=== PATIENT | female | born 1965 | race Caucasian/White ===

== ENCOUNTER 2017-10-28 10:34 | Inpatient (IN) | payer SELFPAY ==
[~2017-10-28] VITALS: Ht 170.2 cm; Wt 45.0 kg
[2017-10-28 11:13] LABS: HEMATOCRIT 43.1 % (36.0-46.0); HEMOGLOBIN 14.9 G/DL (11.9-15.5); MCH 29.8 PG (29.0-34.0); MCHC 34.6 G/DL (30.0-36.0); MCV 86.2 FL (83-99); RBC DIS.WIDTH-CV 11.9 % (11.8-14.6); WHITE BLOOD COUNT 7.6 K/uL (4.1-10.2)
[2017-10-28 11:17] LABS: ALBUMIN 4.8 g/dL (3.2-4.8); CHLORIDE 82 mEq/L (99-109); POTASSIUM 2.9 mEq/L (3.7-5.4); SODIUM 138 mEq/L (136-147)
[2017-10-28 11:19] LABS: GLUCOSE 103 mg/dL (70-99)
[2017-10-28 11:20] LABS: TOTAL PROTEIN 9.2 g/dL (6.4-8.3)
[2017-10-28 11:23] LABS: ALKALINE PHOSPHATASE 84 IU/L (3-129); CREATININE 1.2 mg/dL (0.6-1.3); GFR ESTIMATE (CALCULATED) 50 mL/min/
[2017-10-28 11:24] LABS: UREA NITROGEN (BUN) 40 mg/dL (9-23)
[2017-10-28 11:25] LABS: AST (GOT) 23 IU/L (2-34)
[2017-10-28 11:26] LABS: ALT (GPT) 11 IU/L (3-49)
[2017-10-28 11:53] LABS: PLAT.SUFFICIENCY ADEQUATE; PLATELET COUNT 390 K/uL (156-360)
[2017-10-28 15:59] LABS: CHLORIDE 86 mEq/L (99-109); POTASSIUM 2.9 mEq/L (3.7-5.4); SODIUM 137 mEq/L (136-147)
[2017-10-28 16:01] LABS: GLUCOSE 137 mg/dL (70-99)
[2017-10-28 16:05] LABS: CREATININE 0.8 mg/dL (0.6-1.3); GFR ESTIMATE (CALCULATED) > 59 mL/min/
[2017-10-28 16:06] LABS: UREA NITROGEN (BUN) 32 mg/dL (9-23)
[2017-10-28 18:48] VITALS: BP 123/76
[2017-10-28 22:39] LABS: CHLORIDE 88 mEq/L (99-109); MAGNESIUM 1.9 mg/dL (1.3-2.7); POTASSIUM 2.7 mEq/L (3.7-5.4); SODIUM 138 mEq/L (136-147)
[2017-10-28 22:44] LABS: CREATININE 0.8 mg/dL (0.6-1.3); GFR ESTIMATE (CALCULATED) > 59 mL/min/
[2017-10-28 22:45] LABS: UREA NITROGEN (BUN) 26 mg/dL (9-23)
[2017-10-28 22:50] LABS: GLUCOSE 91 mg/dL (70-99)
[2017-10-28 23:23] VITALS: BP 112/63
[2017-10-29] VITALS (7 sets, daily range): BP systolic 96–155; BP diastolic 51–68
[2017-10-29 05:51] LABS: BASOPHIL (%) 0.7 % (0-1); EOSINOPHIL (%) 2.5 % (0-5); EOSINOPHIL COUNT 0.1 K/uL (0-0.3); HEMATOCRIT 32.5 % (36.0-46.0); IMMATURE GRANULOCYTE (%) 0.2 % (0.0-0.7); LYMPHOCYTE (%) 22.2 % (15-42); LYMPHOCYTE COUNT 1.3 K/uL (1.0-2.8); MCH 29.1 PG (29.0-34.0); MCHC 33.5 G/DL (30.0-36.0); MCV 86.9 FL (83-99); MONOCYTE (%) 8.3 % (3-12); MONOCYTE COUNT 0.5 K/uL (0-0.8); NEUTROPHIL (%) 66.1 % (45-76); NEUTROPHIL COUNT 3.8 K/uL (1.8-6.4); PLATELET COUNT 276 K/uL (156-360); RBC DIS.WIDTH-SD 38.7 % (39-53); WHITE BLOOD COUNT 5.7 K/uL (4.1-10.2)
[2017-10-29 05:55] LABS: CHLORIDE 94 MEQ/L (99-109); CREATININE 0.7 MG/DL (0.6-1.3); GFR ESTIMATE (CALCULATED) > 59 mL/min/; GLUCOSE 81 mg/dL (70-99); POTASSIUM 2.8 MEQ/L (3.7-5.4); SODIUM 137 MEQ/L (136-147); UREA NITROGEN (BUN) 25 mg/dL (9-23)
[2017-10-29 06:06] LABS: HEMOGLOBIN 10.9 G/DL (11.9-15.5); RED BLOOD COUNT 3.74 M/uL (3.80-5.20)
[2017-10-29 06:28] LABS: MAGNESIUM 1.9 mg/dl (1.3-2.7)
[2017-10-30 04:15] VITALS: BP 95/53
[2017-10-30 07:22] VITALS: BP 99/54
[2017-10-30 07:42] LABS: CREATININE 0.5 MG/DL (0.6-1.3); GFR ESTIMATE (CALCULATED) > 59 mL/min/; GLUCOSE 62 mg/dL (70-99); SODIUM 143 MEQ/L (136-147); UREA NITROGEN (BUN) 16 mg/dL (9-23)
[2017-10-30 07:46] LABS: CHLORIDE 105 MEQ/L (99-109)
[2017-10-30 11:25] VITALS: BP 109/56
[2017-10-30 12:59] LABS: GLUCOSE 58 mg/dL (70-99)
[2017-10-30 15:36] VITALS: BP 104/58
[2017-10-30 19:13] VITALS: BP 114/56
[2017-10-30 23:29] VITALS: BP 109/54
[2017-10-31 04:17] VITALS: BP 106/57
[2017-10-31 06:28] LABS: CHLORIDE 108 MEQ/L (99-109); CREATININE 0.5 MG/DL (0.6-1.3); GFR ESTIMATE (CALCULATED) > 59 mL/min/; GLUCOSE 70 mg/dL (70-99); POTASSIUM 2.8 MEQ/L (3.7-5.4); SODIUM 145 MEQ/L (136-147); UREA NITROGEN (BUN) 10 mg/dL (9-23)
[2017-10-31 09:58] LABS: HEMOGLOBIN A1c (GLYCOHEMOGLOB) 5.4 % (Below 5.7)
[2017-10-31] MEDS ORDERED: K-DUR20 MEQ PO (13:10)
[2017-10-31 16:58] VITALS: BP 97/53
[2017-10-31 17:17] LABS: CHLORIDE 108 MEQ/L (99-109); CREATININE 0.5 MG/DL (0.6-1.3); GFR ESTIMATE (CALCULATED) > 59 mL/min/; GLUCOSE 75 mg/dL (70-99); SODIUM 143 MEQ/L (136-147); UREA NITROGEN (BUN) 7 mg/dL (9-23)
[2017-10-31 17:18] LABS: POTASSIUM 3.6 MEQ/L (3.7-5.4)
== END 2017-10-31 19:17 | disposition home or self-care (01) | DRG 394 ==
LOC: EME 10:34 → EDOF 16:37 → 4SOUTH 16:37 → ENRESERV 16:39 → 4SOUTH 17:48
PROVIDERS: Emergency Medicine; Hospitalist; Internal Medicine; Nurse Practitioner Family; Physician Assistant Medical
DX: K95.09 Other complications of gastric band procedure (principal); Y83.1 Surgical operation with implant of artificial internal device as the cause of abnormal reaction of the patient, or of later complication, without mention of misadventure at the time of the procedure; E87.6 Hypokalemia; E86.0 Dehydration; E87.3 Alkalosis; R64 Cachexia; Z68.1 Body mass index [BMI] 19.9 or less, adult; E83.52 Hypercalcemia; E16.2 Hypoglycemia, unspecified; R11.2 Nausea with vomiting, unspecified; Z87.891 Personal history of nicotine dependence; Z80.3 Family history of malignant neoplasm of breast; Z83.3 Family history of diabetes mellitus; Z82.49 Family history of ischemic heart disease and other diseases of the circulatory system
CPT/HCPCS: 71046; 74018; 74177; 80048; 80048 91; 80053; 81003; 82948; 83036; 83735; 84132 91; 84999; 85025; 85027; 99281; 99285; G0378; J1650; J2405; J3480; J7030; J7040; J7120; S0028